=== PATIENT | female | born 1990 | race Caucasian/White ===

== ENCOUNTER 2017-08-05 07:59 | Emergency (ER) | payer MEDICAID, SELFPAY ==
--- NOTE | 2017-08-05 09:08 | RAD ---
RIGHT ANKLE 3 VIEWS: HISTORY: A 26-year-old female with right ankle pain following a twisting injury today. FINDINGS: No fracture, dislocation, or other significant acute osseous abnormality. POS: [facility]
[2017-08-05] MEDS ORDERED: traMADol HCl 50 MG TAB ONE (09:15)
== END 2017-08-05 09:31 | disposition home or self-care (01) ==
LOC: ERS 07:59
DX: S93.401A Sprain of unspecified ligament of right ankle, initial encounter (principal); F41.9 Anxiety disorder, unspecified; F90.9 Attention-deficit hyperactivity disorder, unspecified type; F43.10 Post-traumatic stress disorder, unspecified; F42.9 Obsessive-compulsive disorder, unspecified; F44.9 Dissociative and conversion disorder, unspecified; F17.210 Nicotine dependence, cigarettes, uncomplicated; X50.1XXA Overexertion from prolonged static or awkward postures, initial encounter
CPT/HCPCS: 99406

== ENCOUNTER 2018-02-19 14:59 | Emergency (ER) | payer SELFPAY ==
--- NOTE | 2018-02-19 15:45 | RAD ---
RIGHT WRIST 3 VIEWS: HISTORY: Pain. Injury. FINDINGS: Intercarpal and radiocarpal joint spaces are preserved. No fracture or dislocation. IMPRESSION: No fracture. POS: [facility]
== END 2018-02-19 16:45 | disposition home or self-care (01) ==
LOC: ERS 14:59
DX: S63.501A Unspecified sprain of right wrist, initial encounter (principal); F31.9 Bipolar disorder, unspecified; F41.9 Anxiety disorder, unspecified; F42.9 Obsessive-compulsive disorder, unspecified; F43.10 Post-traumatic stress disorder, unspecified; F90.9 Attention-deficit hyperactivity disorder, unspecified type; F44.9 Dissociative and conversion disorder, unspecified; F17.210 Nicotine dependence, cigarettes, uncomplicated; X50.1XXA Overexertion from prolonged static or awkward postures, initial encounter; Y93.89 Activity, other specified; Z71.6 Tobacco abuse counseling
CPT/HCPCS: 29125; 99406

== ENCOUNTER 2018-02-25 15:25 | Emergency (ER) | payer SELFPAY ==
[2018-02-25] MEDS ORDERED: Acetaminophen 500 MG TAB ONE (16:06)
[2018-02-25] MEDS ORDERED: traMADol HCl 50 MG TAB ONE (16:07)
--- NOTE | 2018-02-25 16:29 | RAD ---
RIGHT WRIST: 02/25/18 Three views. HISTORY: Injury with pain to right wrist. Correlation made to recent films of right wrist dated 02/19/18. FINDINGS/IMPRESSION: Carpals are normally aligned. No fracture identified. No interval change noted. POS: [facility]
== END 2018-02-25 16:52 | disposition home or self-care (01) ==
LOC: ERS 15:25
DX: S63.501A Unspecified sprain of right wrist, initial encounter (principal); F41.9 Anxiety disorder, unspecified; F43.10 Post-traumatic stress disorder, unspecified; F31.9 Bipolar disorder, unspecified; F90.9 Attention-deficit hyperactivity disorder, unspecified type; F42.9 Obsessive-compulsive disorder, unspecified; F17.210 Nicotine dependence, cigarettes, uncomplicated; X50.1XXA Overexertion from prolonged static or awkward postures, initial encounter
CPT/HCPCS: 29125

== ENCOUNTER 2018-05-17 09:40 | Emergency (ER) | payer SELFPAY | END 2018-05-17 10:11 | disposition home or self-care (01) | LOC: SCSER 09:40 | DX: L25.9 Unspecified contact dermatitis, unspecified cause (principal); F41.9 Anxiety disorder, unspecified; F31.9 Bipolar disorder, unspecified; F43.10 Post-traumatic stress disorder, unspecified; F42.9 Obsessive-compulsive disorder, unspecified; F90.9 Attention-deficit hyperactivity disorder, unspecified type; F17.210 Nicotine dependence, cigarettes, uncomplicated; Z79.899 Other long term (current) drug therapy | CPT/HCPCS: 99282 ==

== ENCOUNTER 2018-07-11 09:25 | Emergency (ER) | payer SELFPAY ==
[2018-07-11 11:19] LABS: Anion Gap 13 mmol/L (10-20); BUN (Urea Nitrogen) 4 mg/dL (7.0-18.7); Calc. Creatinine Clearance 0 mL/min (70-130); Carbon Dioxide 23 mmol/L (22-29); Chloride 106 mmol/L (98-107); Estimated GFR-MDRD Greater than 90; Glucose 77 mg/dL (70-105); Potassium 3.5 mmol/L (3.5-5.1); Sodium 138 mmol/L (136-145); Uric Acid 4.2 mg/dL (2.6-6.0)
== END 2018-07-11 12:33 | disposition home or self-care (01) ==
LOC: ERS 09:25
DX: S96.912A Strain of unspecified muscle and tendon at ankle and foot level, left foot, initial encounter (principal); E11.9 Type 2 diabetes mellitus without complications; F31.9 Bipolar disorder, unspecified; F41.9 Anxiety disorder, unspecified; F43.10 Post-traumatic stress disorder, unspecified; F42.9 Obsessive-compulsive disorder, unspecified; F90.9 Attention-deficit hyperactivity disorder, unspecified type; F98.8 Other specified behavioral and emotional disorders with onset usually occurring in childhood and adolescence; F17.210 Nicotine dependence, cigarettes, uncomplicated; X58.XXXA Exposure to other specified factors, initial encounter
CPT/HCPCS: 36415; 80048; 84550; 85652; 86140; 99283

== ENCOUNTER 2018-10-05 16:06 | Emergency (ER) | payer SELFPAY ==
[2018-10-05 17:42] LABS: Bilirubin Negative (Negative); Blood, Urine Negative (Negative); Clarity CLEAR (Clear); Glucose, Urine (Dipstick) Negative (Negative); Leukocyte Negative (Negative); Nitrite Negative (Negative); Protein, Urine (Dipstick) Negative (Neg-Trace); Specific Gravity, Urine 1.015 (1.002-1.036); Urobilinogen 0.2 mg/dL (0.2-1.0)
[2018-10-05 17:44] LABS: Pregnancy Test - Urine (BHCG) Negative (Negative); Pregu Control Background? CLEAR/WHITE (CLR/WHITE); Pregu Control Bar Appear? YES (CONTROL BAR); Specific Gravity 1.015 (1.002-1.036)
[2018-10-05 18:08] LABS: #Eosinphils 0.2 thou/uL (0.0-0.7); #Monocytes 0.5 thou/uL (0.11-0.59); #Neutrophils 4.9 thou/uL (1.40-6.50); %Basophils 0.5 % (0.0-1.0); %Lymphocytes 41.5 % (21.0-51.0); %Monocytes 5.6 % (0.0-10.0); %Neutrophils 50.5 % (42.0-75.0); Hemoglobin 13.5 g/dL (12.0-16.0); Mean Corpuscular HGB CONC 33.9 g/dL (32.0-36.0); Mean Corpuscular Hemoglobin 30.2 pg (27.0-31.0); Mean Corpuscular Volume 89.1 fL (78.0-98.0); Mean Platelet Volume 7.4 fL (7.4-10.4); Platelet Count 292 thou/uL (130-400); RBC Distribution Width 12.6 % (11.5-14.5); Red Blood Cell (RBC) Count 4.47 mill/uL (4.20-5.40); White Blood Cell (WBC) Count 9.7 thou/uL (4.8-10.8)
[2018-10-05 18:22] LABS: Anion Gap 10 mmol/L (10-20); BUN (Urea Nitrogen) 8 mg/dL (7.0-18.7); Calc. Creatinine Clearance 0 mL/min (70-130); Calcium 8.4 mg/dL (7.8-10.44); Carbon Dioxide 24 mmol/L (22-29); Chloride 107 mmol/L (98-107); Estimated GFR-MDRD Greater than 90; Glucose 83 mg/dL (70-105); Potassium 3.9 mmol/L (3.5-5.1); Sodium 137 mmol/L (136-145)
[2018-10-05] MEDS ORDERED: Metoclopramide HCl 10 MG/2 ML VIAL ONE (19:51)
[2018-10-05] MEDS ORDERED: Ketorolac Tromethamine 30 MG/ML VIAL ONE (19:51)
[2018-10-05] MEDS ORDERED: diphenhydrAMINE 50 MG/ML VIAL ONE (19:52)
== END 2018-10-05 21:35 | disposition home or self-care (01) ==
LOC: ERS 16:06
DX: R51 Headache (principal); R42 Dizziness and giddiness; R11.0 Nausea; F41.9 Anxiety disorder, unspecified; F31.9 Bipolar disorder, unspecified; F43.10 Post-traumatic stress disorder, unspecified; F90.9 Attention-deficit hyperactivity disorder, unspecified type; F42.9 Obsessive-compulsive disorder, unspecified; F17.210 Nicotine dependence, cigarettes, uncomplicated; E11.9 Type 2 diabetes mellitus without complications
CPT/HCPCS: 36415; 80048; 81003; 81025; 85025; 87804; 96361; 96374; 96375; J1200; J1885; J2765

== ENCOUNTER 2019-03-01 21:32 | Emergency (ER) | payer SELFPAY ==
[2019-03-01] MEDS ORDERED: Ketorolac Tromethamine 30 MG/ML VIAL ONE (22:15)
--- NOTE | 2019-03-01 22:30 | RAD ---
Exam: XR Ankle Rt 3 View STANDARD HISTORY: Right ankle joint pain after twisting ankle. COMPARISON: 08/05/2017 FINDINGS: No acute fracture, dislocation, or other acute osseous abnormality is identified. Views of the right ankle are stable compared to prior study. IMPRESSION: No acute osseous abnormality is identified.
== END 2019-03-01 23:00 | disposition home or self-care (01) ==
LOC: ERS 21:32
DX: S93.401A Sprain of unspecified ligament of right ankle, initial encounter (principal); F41.9 Anxiety disorder, unspecified; F31.9 Bipolar disorder, unspecified; F43.10 Post-traumatic stress disorder, unspecified; F90.9 Attention-deficit hyperactivity disorder, unspecified type; F17.210 Nicotine dependence, cigarettes, uncomplicated; W01.0XXA Fall on same level from slipping, tripping and stumbling without subsequent striking against object, initial encounter
CPT/HCPCS: 96372; J1885

== ENCOUNTER 2019-04-04 20:19 | Emergency (ER) | payer SELFPAY ==
[2019-04-04] MEDS ORDERED: HYDROcodone/Acetaminophen 5/325 mg Tablet ONE (21:01)
[2019-04-04 21:19] LABS: BHCG - Serum Negative (NEGATIVE); Pregs Control Background? CLEAR/WHITE (CLR/WHITE); Pregs Control Bar Appear? YES (CONTROL BAR)
[2019-04-04 21:24] LABS: Bacteria/HPF 1+ HPF (None Seen); Bilirubin Negative (Negative); Blood, Urine Negative (Negative); Clarity Clear (Clear); Glucose, Urine (Dipstick) Normal (Negative); Leukocyte 25 Leu/uL (Negative); Nitrite Negative (Negative); Protein, Urine (Dipstick) Negative (Neg-Trace); RBC/HPF 0-3 HPF (0-3); Squamous Epithelial 0-3 HPF (0-3); Urobilinogen Normal mg/dL (Less than 2); WBC/HPF 0-3 HPF (0-3)
--- NOTE | 2019-04-04 22:02 | ULT ---
TRANSABDOMINAL AND TRANSVAGINAL PELVIC ULTRASOUND WITH GRAYSCALE, COLORFLOW, AND SPECTRAL DOPPLER MARIE GING: HISTORY: A 28-year-old female with pelvic pain. Nausea. FINDINGS: The uterus measures 9.5 x 3.2 x 4.1 cm without focal mass or endometrial fluid. The endometrium nida ures 8 mm in thickness. The left ovary is not visualized. The right ovary measures 3.8 x 2.9 x 3.7 cm and demonstrates flow. No adnexal mass or free fluid is seen in the cul-de-sac. A 3 x 2.5 cm cyst is seen in the right ovary. IMPRESSION: 1. Nonvisualization of the left ovary. 2. A 3 cm right ovarian cyst. POS: [facility]
[2019-04-04] MEDS ORDERED: metroNIDAZOLE 250 MG TAB ONE (23:42)
[2019-04-05 23:02] LABS: Chlamydia by PCR Not Detected (NotDetected); GC by PCR Not Detected (NotDetected)
== END 2019-04-05 00:14 | disposition home or self-care (01) ==
LOC: ERS 20:19
DX: A59.01 Trichomonal vulvovaginitis (principal); N76.0 Acute vaginitis; F31.9 Bipolar disorder, unspecified; F41.9 Anxiety disorder, unspecified; F43.10 Post-traumatic stress disorder, unspecified; F17.210 Nicotine dependence, cigarettes, uncomplicated; Z79.899 Other long term (current) drug therapy
CPT/HCPCS: 36415; 76856; 81003; 81015; 84703; 87480; 87491; 87510; 87591; 87660

== ENCOUNTER 2019-06-07 13:22 | Outpatient (CLI) | payer MEDICAID ==
--- NOTE | 2019-06-07 14:08 | ULT ---
Exam: Pelvic ultrasound HISTORY: Pelvic pain COMPARISON: 04/04/2019 TECHNIQUE: Multiple grayscale and color Doppler images were obtained in a transabdominal and transvag inal pelvic ultrasound. Spectral analysis of the Doppler waveforms of the ovaries were performed. FINDINGS: CERVIX: Not well visualized on this exam. UTERUS: Limited examination on endovaginal imaging secondary to shadowing from adjacent loops of javier l. Uterus where visualized does demonstrate a grossly normal sonographic appearance. ENDOMETRIAL STRIPE: Not well visualized but measures approximately 5 mm which is within normal limits for a normal menstruating female patient. No fluid or fluid collection is seen in the endometrial canal. No free fluid is present. RIGHT OVARY: Not visualized on endovaginal imaging due to significant shadowing from adjacent bowel g as. However, the right ovary is visualized on transabdominal imaging. Previously noted right ovarian cyst seen on prior study is no longer visualized. The right ovary does demonstrate a normal t ransabdominal sonographic appearance. Flow is demonstrated in the right ovary. LEFT OVARY: Only seen on transabdominal imaging and demonstrates a normal appearance with flow. IMPRESSION: Limited examination, but no gross abnormalities are seen involving the uterus or bilateral ovaries. P reviously noted right ovarian cyst has resolved.
== END 2019-06-07 13:23 | disposition home or self-care (01) ==
LOC: BICULT 13:22
DX: R10.2 Pelvic and perineal pain (principal)
CPT/HCPCS: 76856

== ENCOUNTER 2019-06-14 19:52 | Emergency (ER) | payer MEDICAID, SELFPAY ==
[2019-06-14] MEDS ORDERED: HYDROcodone/Acetaminophen 5/325 mg Tablet ONE (20:42)
--- NOTE | 2019-06-14 20:53 | RAD ---
EXAM: Chest 2 views: HISTORY: Dizziness and lightheadedness COMPARISON: None. FINDINGS: There is a normal-sized cardiomediastinal silhouette. There is no evidence of consolidation, mass, or pleural effusion. The bones are unremarkable. IMPRESSION: No evidence of acute cardiopulmonary disease
== END 2019-06-14 21:03 | disposition home or self-care (01) ==
LOC: ERS 19:52
DX: S20.211A Contusion of right front wall of thorax, initial encounter (principal); F31.9 Bipolar disorder, unspecified; F41.9 Anxiety disorder, unspecified; F43.10 Post-traumatic stress disorder, unspecified; F17.210 Nicotine dependence, cigarettes, uncomplicated; W19.XXXA Unspecified fall, initial encounter
CPT/HCPCS: 71046

== ENCOUNTER 2019-10-01 09:57 | Emergency (ER) | payer MEDICAID | END 2019-10-01 12:48 | disposition home or self-care (01) | LOC: ERS 09:57 | DX: L25.9 Unspecified contact dermatitis, unspecified cause (principal); F31.9 Bipolar disorder, unspecified; F41.9 Anxiety disorder, unspecified; F43.10 Post-traumatic stress disorder, unspecified; F42.9 Obsessive-compulsive disorder, unspecified; F90.9 Attention-deficit hyperactivity disorder, unspecified type; F17.210 Nicotine dependence, cigarettes, uncomplicated | CPT/HCPCS: 99282 ==

== ENCOUNTER 2019-11-08 17:39 | Emergency (ER) | payer MEDICAID, SELFPAY ==
[2019-11-08 18:52] LABS: #Basophils 0.1 thou/uL (0.0-0.2); #Eosinphils 0.2 thou/uL (0.0-0.7); #Lymphocytes 3.9 thou/uL (1.20-3.40); #Monocytes 0.8 thou/uL (0.11-0.59); #Neutrophils 8.4 thou/uL (1.40-6.50); %Basophils 0.7 % (0.0-1.0); %Eosinophils 1.7 % (0.0-10.0); %Lymphocytes 29.4 % (21.0-51.0); %Monocytes 5.8 % (0.0-10.0); %Neutrophils 62.5 % (42.0-75.0); Hemoglobin 14.8 g/dL (12.0-16.0); Mean Corpuscular HGB CONC 33.2 g/dL (32.0-36.0); Mean Corpuscular Hemoglobin 29.3 pg (27.0-31.0); Mean Corpuscular Volume 88.4 fL (78.0-98.0); Mean Platelet Volume 7.2 fL (7.4-10.4); Platelet Count 317 thou/uL (130-400); RBC Distribution Width 12.3 % (11.5-14.5); Red Blood Cell (RBC) Count 5.03 mill/uL (4.20-5.40); White Blood Cell (WBC) Count 13.4 thou/uL (4.8-10.8)
[2019-11-08 19:08] LABS: BHCG - Serum Negative (NEGATIVE); Pregs Control Background? CLEAR/WHITE (CLR/WHITE); Pregs Control Bar Appear? YES (CONTROL BAR)
[2019-11-08 19:11] LABS: ALT (SGPT) 16 U/L (8-55); AST (SGOT) 12 U/L (5-34); Albumin 3.6 g/dL (3.5-5.0); Alkaline Phosphatase 61 U/L (40-110); Anion Gap 10 mmol/L (10-20); BUN (Urea Nitrogen) 11 mg/dL (7.0-18.7); Bilirubin, Total Less than 0.2 mg/dL (0.2-1.2); Calc. Creatinine Clearance 0 mL/min (70-130); Calcium 8.7 mg/dL (7.8-10.44); Carbon Dioxide 23 mmol/L (22-29); Chloride 108 mmol/L (98-107); Estimated GFR-MDRD 90; Globulin 2.3 g/dL (2.4-3.5); Glucose 94 mg/dL (70-105); Potassium 4.2 mmol/L (3.5-5.1); Protein, Total 5.9 g/dL (6.0-8.3); Sodium 137 mmol/L (136-145)
[2019-11-08] MEDS ORDERED: diphenhydrAMINE 50 MG/ML VIAL ONE (20:14)
[2019-11-08] MEDS ORDERED: Ketorolac Tromethamine 30 MG/ML VIAL ONE (20:14)
[2019-11-08] MEDS ORDERED: Metoclopramide HCl 10 MG/2 ML VIAL ONE (20:14)
== END 2019-11-08 23:15 | disposition home or self-care (01) ==
LOC: ERS 17:39
DX: R53.1 Weakness (principal); F41.9 Anxiety disorder, unspecified; F32.9 Major depressive disorder, single episode, unspecified; F43.10 Post-traumatic stress disorder, unspecified; F90.9 Attention-deficit hyperactivity disorder, unspecified type; F17.210 Nicotine dependence, cigarettes, uncomplicated
CPT/HCPCS: 36415; 80053; 84703; 85025; 87804; 93005; 96365; 96375; J1200; J1885; J2765

== ENCOUNTER 2020-10-25 18:23 | Emergency (ER) | payer SELFPAY ==
[2020-10-25] MEDS ORDERED: Ketorolac Tromethamine 30 MG/ML VIAL ONE (18:54)
[2020-10-25 19:10] LABS: #Basophils 0.1 thou/uL (0.0-0.2); #Eosinphils 0.2 thou/uL (0.0-0.7); #Lymphocytes 3.8 thou/uL (1.20-3.40); #Monocytes 0.5 thou/uL (0.11-0.59); #Neutrophils 6.2 thou/uL (1.40-6.50); %Basophils 0.8 % (0.0-1.0); %Eosinophils 1.9 % (0.0-10.0); %Lymphocytes 35.2 % (21.0-51.0); %Monocytes 4.5 % (0.0-10.0); %Neutrophils 57.6 % (42.0-75.0); Mean Corpuscular HGB CONC 33.9 g/dL (32.0-36.0); Mean Corpuscular Hemoglobin 30.6 pg (27.0-31.0); Mean Corpuscular Volume 90.2 fL (78.0-98.0); Platelet Count 312 thou/uL (130-400); RBC Distribution Width 13.5 % (11.5-14.5); Red Blood Cell (RBC) Count 4.26 mill/uL (4.20-5.40); White Blood Cell (WBC) Count 10.7 thou/uL (4.8-10.8)
== END 2020-10-25 20:22 | disposition home or self-care (01) ==
LOC: ERS 18:23
DX: M25.561 Pain in right knee (principal); F17.210 Nicotine dependence, cigarettes, uncomplicated; Z79.899 Other long term (current) drug therapy
CPT/HCPCS: 36415; 85025; 86140; 96372; J1885